=== PATIENT | female | born 1980 | race Caucasian/White ===

== ENCOUNTER 2016-10-01 02:22 | Inpatient (IN) ==
[2016-09-26 09:34] LABS: MANUAL DIFF NEEDED? NO; URINE MICRO REVIEW NEEDED? NO; URINE SOURCE CLEAN CATCH
[2016-09-26 09:54] LABS: BASO% 0.6 % (0.0-0.8); EOS# 0.16 X1000 (0.0-0.7); EOS% 2.5 % (0.0-10.0); HEMATOCRIT 45.2 % (37.0-47.0); HEMOGLOBIN 14.8 g/dL (12.0-16.0); IMM GRAN# 0.02 X1000 (0.0-0.04); IMM GRAN% 0.3 % (0.0-0.5); LYMPH# 1.28 X1000 (1.2-3.4); LYMPH% 19.7 % (20.5-51.1); MCH 28.7 PG (27-31); MCHC 32.7 g/dL (33-37); MCV 87.8 FL (81-99); MONO# 0.42 X1000 (0.11-0.59); MONO% 6.5 % (1.7-9.3); MPV 10.8 FL (7.4-10.4); NEUT% 70.4 % (42.2-75.2); PLT 356 X1000 (130-400); RBC 5.15 XMIL (4.2-5.4)
[2016-09-26 09:56] LABS: BILIRUBIN URINE NEGATIVE (NEGATIVE); BLOOD URINE NEGATIVE (NEGATIVE); COLOR YELLOW; GLUCOSE URINE NEGATIVE (NEGATIVE); LEUKOCYTES URINE SMALL (NEGATIVE); NITRITE URINE NEGATIVE (NEGATIVE); PH URINE 6.5; PROTEIN URINE NEGATIVE (NEGATIVE); SP GRAVITY URINE 1.016; TURBIDITY URINE CLEAR (CLEAR); UROBILINOGEN URINE NORMAL (NORMAL)
[2016-09-26 09:58] LABS: UR EPITHELIAL CELLS <10 /HPF (<10); URINE BACTERIA NEGATIVE /HPF; URINE RBC <10 /HPF (<10); URINE WBC <10 /HPF (<10)
--- NOTE | 2016-09-30 18:23 | HISTORY AND PHYSICAL ---
HISTORY OF PRESENT ILLNESS: Emily is a 36-year-old, white female, para 2, with a history of 2 C-sections, also a tubal ligation, being admitted at this time for a total abdominal hysterectomy, left salpingo-oophorectomy, and right salpingectomy. Emily has had an ongoing problem with abnormal bleeding and pelvic pain. She chronically hurts on the left side and typically it is even worse during the time of her menses but a significant amount of discomfort off and on even at different times of the month. She also has had sort of a dysfunctional type of bleeding pattern and due to the fact that her family is complete, that they have had a previous sterilization procedure, and no desire for any further childbearing potential, she wants to move on in the direction of a more definitive approach with a hysterectomy. We talked about the left lower quadrant pain and have decided that we will definitely plan to remove the left tube and ovary and that we will also take the right tube as well and the right ovary will be just dependant upon how everything looks at that time. She understands that that will be our call at the time of the surgery. We did discuss the nature of the procedure, the risks involved, risk of anesthesia, other issues including, but not limited to, injury to surrounding structures, infection, hemorrhage, and the possibility of even having to leave the cervix if scarring is too significant around that area. We also discussed even the possibility of . We discussed the usual length of hospitalization, the recuperation time at home, and the restrictions therein, and when she might likely be able to return to the workplace. We did discuss that should we find that there is an issue with the right ovary that needs to be removed that she would need to consider estrogen replacement therapy postoperatively. At the time of the office visit I did ask her to keep a running list of any questions that she might come up with that we might need answer prior to the surgery. PAST HISTORY: Other than the above, for the most part is noncontributory. FAMILY HISTORY: Basically noncontributory. SOCIAL HISTORY: Basically noncontributory. REVIEW OF SYSTEMS: Basically noncontributory. MEDICATIONS: Do include Topamax, Relpax occasionally, and cambia as needed. ALLERGIES: She does relate to an allergy to sulfa and morphine. PHYSICAL EXAMINATION: GENERAL: Exam is that of a well-developed, well-nourished, white female, in no acute distress. VITAL SIGNS: Stable. Noted on the chart. HEENT: Unremarkable. NECK: Without nodes or thyromegaly. HEART: Regular without murmurs, gallops, or rubs. LUNGS: Clear. BREASTS: Without mass or tenderness. ABDOMEN: Soft, nontender. No masses. Well-healed low Pfannenstiel incision scar from her previous 2 C-sections. PELVIC EXAM: Normal external female genitalia. Vagina is clean. Cervix no lesions. Recent Pap smear in June was normal. Uterus normal size, mid position. No adnexal masses or any pelvic tenderness elicited on exam. Rectovaginal normal. Heme negative. EXTREMITIES: Without tenderness or edema. NEUROLOGICAL: Grossly normal. ASSESSMENT: Overall normal exam but with abnormal uterine bleeding and chronic pelvic pain on the left side. PLAN: For a total abdominal hysterectomy with left salpingo-oophorectomy and right salpingectomy. cc: Omero Bills MD
[2016-10-01] MEDS ORDERED: LR 1,000 ML ONE ×2 (05:49→08:46)
[2016-10-01] MEDS ORDERED: KEFZOL 1 GM/D5W 1 GM/50 ML IVPB ONE (05:49)
[2016-10-01] MEDS ORDERED: REGLAN ONE (05:49)
[2016-10-01] MEDS ORDERED: PEPCID ONE (05:49)
[2016-10-01 07:19] LABS: URINE MICRO REVIEW NEEDED? NO; URINE SOURCE CATH
[2016-10-01 07:27] LABS: BILIRUBIN URINE NEGATIVE (NEGATIVE); BLOOD URINE SMALL (NEGATIVE); COLOR YELLOW; GLUCOSE URINE NEGATIVE (NEGATIVE); LEUKOCYTES URINE NEGATIVE (NEGATIVE); NITRITE URINE NEGATIVE (NEGATIVE); PH URINE 5.5; PROTEIN URINE NEGATIVE (NEGATIVE); SP GRAVITY URINE 1.019; TURBIDITY URINE CLEAR (CLEAR); UROBILINOGEN URINE NORMAL (NORMAL)
[2016-10-01 07:29] LABS: UR EPITHELIAL CELLS <10 /HPF (<10); URINE BACTERIA NEGATIVE /HPF; URINE RBC <10 /HPF (<10); URINE WBC <10 /HPF (<10)
[2016-10-01] MEDS ORDERED: MARCAINE 0.25% PF ONE ×2 (07:38→08:06)
[2016-10-01] MEDS ORDERED: SODIUM CHLORIDE 0.9% 10 ML ONE (07:38)
[2016-10-01] MEDS ORDERED: EXPAREL 1.3% ONE (07:38)
[2016-10-01] MEDS ORDERED: FENTANYL ONE (08:27)
[2016-10-01] MEDS ORDERED: VERSED ONE (08:27)
[2016-10-01] MEDS ORDERED: DIPRIVAN 1% ONE (08:28)
[2016-10-01] MEDS: DILAUDID ONE ×6 (08:38→14:48)
[2016-10-01] MEDS: DILAUDID PCA VIAL ONE ×2 (09:02→11:50)
[2016-10-01] MEDS ORDERED: [UNRECOGNIZED DRUG - OTHER] PO PRN (09:20)
[2016-10-01] MEDS ORDERED: DICLOFENAC POTASSIUM 50 MG PO PRN (09:20)
[2016-10-01] MEDS ORDERED: RELPAX PO PRN (09:20)
[2016-10-01] MEDS ORDERED: ZOFRAN ONE (09:26)
[2016-10-01] MEDS ORDERED: LR 1,000 ML IV SCH (09:26)
[2016-10-01] MEDS ORDERED: NARCAN IV PRN (09:26)
[2016-10-01] MEDS ORDERED: DILAUDID PCA VIAL IV PRN (09:26)
[2016-10-01] MEDS ORDERED: NEOSTIGMINE ONE (09:26)
[2016-10-01] MEDS ORDERED: ROBINUL ONE (09:27)
[2016-10-01] MEDS ORDERED: ZEMURON ONE (09:27)
[2016-10-01] MEDS ORDERED: DECADRON ONE (09:27)
[2016-10-01] MEDS ORDERED: QUELICIN (DOSE) ONE (09:27)
[2016-10-01] MEDS ORDERED: XYLOCAINE-MPF 2% ONE (09:27)
[2016-10-01] MEDS ORDERED: PHENERGAN IV PRN (09:28)
[2016-10-01] MEDS ORDERED: SODIUM CHLORIDE 0.9% INJ PRN (09:28)
[2016-10-01] MEDS ORDERED: BENADRYL IV PRN (09:28)
[2016-10-01] MEDS ORDERED: ZOFRAN IV PRN (09:28)
--- NOTE | 2016-10-01 09:57 | OPERATIVE NOTE ---
PROCEDURE DATE: 10/01/2016 SURGEON: Dr. Omero Bills. EXHIBIT DISPLAY REPRESENTATIVE: Dr. Da Silva. ANESTHESIA: General endotracheal, Dr. Dean. PREOPERATIVE DIAGNOSES: 1. Abnormal uterine bleeding. 2. Chronic pelvic pain on the left side. 3. Dysmenorrhea. POSTOPERATIVE FINDINGS: Significant adhesions to the left tube and ovary as well as anteriorly across the lower anterior surface of the cervix from her previous C-sections. PROCEDURES PERFORMED: Total abdominal hysterectomy with left salpingo-oophorectomy and right salpingectomy. It should also be noted that the right ovary did appear to be normal. OPERATIVE NOTE: Emily was brought to the operating room and after being placed upon the operating table and under general anesthesia, she was then prepped and draped in the usual sterile fashion with a Fan catheter in place. The abdomen was entered going through the old Pfannenstiel incision. Once the fascia was opened and extended, we then entered the peritoneum and extended it and inserted the Martita retractor. Then with the bladder retracting blade and the moist lap packs, we were able to visualize the pelvic contents. The uterus was grasped and elevated with a Thaddeus clamp and on the left side, we did find several adhesions between the tube and ovary and adjacent structures. Most of these were very thin and we were able to cauterize those and some of these, we were actually able to break up bluntly. Once doing that, we were then able to visualize the infundibulopelvic ligament and using the LigaSure device, we were able to clamp, cauterize, and transect in a stepwise manner to release the left tube and ovary from its blood supply and support. The left tube and ovary were then extirpated. At this point, we then turned our attention to the right adnexa. The right ovary appeared normal and our plan was to leave it intact, assuming that it did appear normal but we did proceed with extirpation of the right fallopian tube. Once that was done, we then released the utero-ovarian ligament and subsequently round ligament on the right-hand side and then also in a stepwise manner on the left- hand side. This got us down to the adhesions anteriorly from the old scar to the anterior surface of the cervix. Then with sharp dissection, we were able to develop our plane. There was a little bit of excessive bleeding so we placed a stitch to control that but essentially developed the plane to mobilize the bladder down and away anteriorly. Once that was done, we then used the zeppelin clamp on each side to secure the uterine vessels. In a 2-step manner, we clamped, transected, and suture ligated with 0 Polysorb the uterine vessels on each side. Again, we took care to assure that the bladder was moving down and away from us anteriorly. Then with Rosario clamps, we stepwise clamped, transected, and suture ligated the remaining paracervical tissue down to ultimately reaching the uterosacral ligament on each side. We did enter the vagina on the left side 1st. Then using the Felicitas scissors, we extirpated the cervix away from its vaginal attachments and then placed Rosario clamps on the angles of the vagina to assure that we could secure those angles. The angle sutures were placed and tacked to the uterosacrals for support purposes. Then the remaining vaginal edges were reapproximated with [id number] style stitches using approximately 4 of these to complete closure of the vagina and securing hemostasis there. There was one small oozing point on the anterior vagina that we placed a simple stitch to provide hemostasis there. We did use the electrocautery in a place or two just very judiciously to secure hemostasis as well. At this point, we then irrigated the pelvic cavity twice and inspected, and found good hemostasis throughout. The previously tagged uterosacral sutures were then cut and another thorough inspection confirmed good hemostasis throughout. We then removed the 2 moist lap packs as well as the self-retaining Martita retractor. All of the parts were accounted for. Then we began closure of the abdominal incision first by reapproximating the peritoneum with a running 0 Polysorb. The subfascial plane was controlled hemostatically with the electrocautery. The fascia run back together with 2 separate strands of #1 Polysorb, first from the right angle over to the midpoint and secondly from the left-hand angle over to the midpoint. This secured that closure. We then used the electrocautery to achieve hemostasis in the subcutaneous plane as well as to undermine that as it previously had a small divot like dip in the skin so we undermined that to release some adhesions there in hopes that maybe this will heal this time without causing the indentation effect of the skin. Once that was done, hemostasis achieved there, we then closed the skin with the surgical stapler. The incision site was cleaned. It was covered with a sterile dry gauze dressing. At this point, Dr. Dean came back in to do the TAP block for her abdominal pain management. Then subsequently, Emily was awakened, transferred to the stretcher and to the recovery room in stable condition, draining clear urine in the Fan catheter bag. Again, it should be noted that all needle, sponge, and instrument counts were correct at the end of the case. I did speak with her , Zeferino, outside of the waiting area to let him know that the procedure had gone well, that we encountered no unexpected events, and that we were able to accomplish everything that we set out to do. Overall, he was pleased with the report and had no further questions at this time. cc: MD Tyrel Gonzalez MD
[2016-10-01] MEDS: LR 1,000 ML IV SCH ×3 (11:49→22:21)
[2016-10-01] MEDS: PERIDEX MT SCH ×2 (11:53→21:36)
--- NOTE | 2016-10-01 13:55 | PROGRESS NOTE ---
DATE: 10/01/2016 Emily is now almost 6 hours status post total abdominal hysterectomy with left salpingo- oophorectomy and right salpingectomy. She is resting comfortably in her room, #460, and has her family with her. Her pain management at this point seems to be adequate. She remains afebrile with stable vital signs and has adequate clear urine output at this point, as well. She has been able to take some ice chips and sips of liquid by mouth and at this point voices that she is not in need of anything in particular. We will continue on as ordered. She is stable postoperatively and will plan to revisit her at approximately 8 a.m. tomorrow morning unless there is a need in the meantime. cc: Omero Bills MD
[2016-10-01] MEDS ORDERED: TOPAMAX PO SCH (21:00)
[2016-10-02] MEDS: LR 1,000 ML IV SCH (04:56)
[2016-10-02 05:48] LABS: HEMOGLOBIN 13.8 g/dL (12.0-16.0); MCHC 32.1 g/dL (33-37); MCV 90.3 FL (81-99); MPV 10.6 FL (7.4-10.4); RBC 4.76 XMIL (4.2-5.4)
[2016-10-02] MEDS ORDERED: SALINE LOCK IV FLUID XX ONE (06:33)
[2016-10-02] MEDS ORDERED: NORCO-10 PO PRN (08:04)
--- NOTE | 2016-10-02 08:50 | PROGRESS NOTE ---
DATE: 10/02/2016 Postoperative day 1. Emily is now about 24 hour status post total abdominal hysterectomy with left salpingo-oophorectomy and right salpingectomy. She has had a reasonably restful night. Pain management has been adequate. She has remained afebrile with stable vital signs. White count this morning was 12.4 and hematocrit 43%. Abdomen is soft. Dressing is dry. Extremities without tenderness or edema. Her catheter has been removed earlier this morning and she has been able to void a couple of times already on her own. She has also been able to tolerate solid food and plenty of liquids to drink, and feels at this point that she likely will be ready to be discharged a little bit later on this morning. Plans are for now to see how she does increasing her activity this morning and being sure that she does adequately on oral pain medication. I will revisit her within the next 3-4 hours, around lunchtime, to see how things are and see if we can make arrangements for her to be discharged around that time. She is stable postoperatively. cc: Omero Bills MD
[2016-10-02] MEDS: PERIDEX MT SCH (09:20)
[2016-10-02 11:21] VITALS: BP 97/53
--- NOTE | 2016-10-03 03:46 | PROGRESS NOTE ---
DATE: 10/02/2016 Emily is now approaching a day and a half postop JEANETTE/LSO and right salpingectomy. She has had a good morning being able to increase her diet and her activity level. Voiding without a catheter. She has remained afebrile and has had stable vital signs. Her lab work was noted earlier and stable. We did remove the bandage and the incision is clean and dry and appears normal for postop day 1. She does feel that she wants to be discharged to home today. We went over all of the instructions in regards to routine activity, sexual activity and incision care. She has a prescription for [place] 10/325 #36 and she will take 1/2 to 1 tab every 4-6 hours as needed for pain. Plans were made for her to return to the office next Friday or Friday, whichever is convenient for her for staple removal and the 1st postop visit. She felt well informed in regards to the instructions and at that point, had no further questions. She will be discharged to home today, stable postop, to the care of her family with the instructions as noted above. cc: Omero Bills MD
== END 2016-10-02 13:16 | disposition home or self-care (01) ==
LOC: SURHOLD 02:22 → 4N 09:07
PROVIDERS: ADMIT Obstetrics & Gynecology; ATTEND Obstetrics & Gynecology